=== PATIENT | female | born 1980 | race Caucasian/White ===

== ENCOUNTER 2020-07-06 10:55 | Day surgery (SDC) | payer OTHER ==
[2020-06-28 15:17] LABS: BASOPHILS # (AUTO) 0.1 X10'3 (0-0.2); BASOPHILS % (AUTO) 0.9 % (0-1); EOSINOPHILS # (AUTO) 0.2 X10'3 (0-0.9); EOSINOPHILS % (AUTO) 1.5 % (0-6); LYMPHOCYTES % (AUTO) 23.2 % (21-51); MEAN CORPUSCULAR HEMOGLOBIN 29.9 PG (27.0-31.0); MEAN CORPUSCULAR HGB CONC 33.6 g/dL (33.0-36.5); MEAN CORPUSCULAR VOLUME 89.2 FL (78-98); MEAN PLATELET VOLUME 8.7 FL (7.4-10.4); MONOCYTES # (AUTO) 0.9 X10'3 (0-0.9); MONOCYTES % (AUTO) 6.8 % (2-12); NEUTROPHILS # (AUTO) 8.8 X10'3 (1.8-7.7); NEUTROPHILS % (AUTO) 67.6 % (42-75); PRE OP HEMATOCRIT 40.7 % (35.0-45.0); PRE OP HEMOGLOBIN 13.7 g/dL (12.0-16.0); PRE OP PLATELET COUNT 340 X10'3 (140-440); RED BLOOD COUNT 4.56 X10'6 (4.20-5.60); RED CELL DISTRIBUTION WIDTH 13.3 % (11.5-14.5)
[2020-06-28 15:30] LABS: ALBUMIN 3.5 G/DL (3.4-5.0); ALBUMIN/GLOBULIN RATIO 0.8 (1.1-1.5); ALKALINE PHOSPHATASE 77 IU/L (46-116); BLOOD UREA NITROGEN 17 MG/DL (7-18); BUN/CREATININE RATIO 17.2 (6.6-38.0); CALCIUM 9.1 MG/DL (8.5-10.1); CHLORIDE 107 MMOL/L (99-107); CREATININE 0.99 MG/DL (0.40-0.90); PRE OP ALT 36 U/L (30-65); PRE OP ANION GAP 7 (8-16); PRE OP AST 15 U/L (10-37); PRE OP BILIRUB, TOTAL 0.3 MG/DL (0.0-1.0); PRE OP GLUCOSE 139 MG/DL (70-104); PRE OP POTASSIUM 3.9 MMOL/L (3.4-5.1); PRE OP SODIUM 142 MMOL/L (135-145); TOTAL CARBON DIOXIDE 28.5 MMOL/L (24-32); TOTAL PROTEIN 7.7 G/DL (6.4-8.2); eGFR 62 ML/MIN
[2020-07-06] VITALS (9 sets, daily range): BP systolic 116–157; BP diastolic 72–92
[~2020-07-06] VITALS: Ht 170.2 cm; Wt 141.5 kg
[~2020-07-06 10:55] MED LIST: AMLO1CAP10 PO; CBD; ESCI20TA45 PO; LAMO100T PO; MELATONIN; METF-900 PO; MINO50CA5 PO; NAPR220T67 PO; ceFAZolin inj. 3,000 MG in normal saline 100ml IV soln 100 ML IV ONE; famotidine 20mg tablet PO ONE; ringers solution, lacted 1,000 ML IV SCH; vancomycin 1,500 MG in NS 300ml IV soln IV ONE
[2020-07-06] MEDS ORDERED: BUPIVAcaine/PF 2.5 mg/ml (0.25%) 30ml vial ONE (13:55)
[2020-07-06] MEDS ORDERED: acetaminophen 1000 MG/100ml vial IV ONE (14:09)
[2020-07-06] MEDS ORDERED: sevoflurane 250ml liquid IH ONE (14:09)
[2020-07-06] MEDS ORDERED: midazolam 2 mg/2 ml injection ONE (14:12)
[2020-07-06] MEDS ORDERED: fentaNYL/PF 50MCG/1 ML 2ML syringe ONE ×2 (14:12→14:24)
[2020-07-06] MEDS ORDERED: triamcinolone acetonide 40mg/ml inj ONE (14:50)
[2020-07-06] MEDS ORDERED: LIDOcaine 2% (20mg/ml) 5ml vial ONE (14:59)
[2020-07-06] MEDS ORDERED: propofol inj 20 ML IV ONE (14:59)
[2020-07-06] MEDS ORDERED: ondansetron/PF 4mg/2ml inj ONE (14:59)
[2020-07-06] MEDS ORDERED: glycopyrrolate 0.2mg/ml inj ONE (14:59)
--- NOTE | 2020-07-06 15:22 | NUR ---
Received from OR via [facility] , accompanied by Anesthesiologist RILEY and report given by Anesthesiolgist. PATIENT WITH 20G PIV IN LEFT UE RUNNING LR AT 100. DENIES PAIN. RIGHT KNEE WITH BIAS DRESSING THAT IS CDI. + CAP REFILL AND + DODRSALIS PEDIS PRESENT. 10L MASK ON WITH 100% SATURATIONS. Addendum: 07/06/20 at 1601 by James Chilel RN, RN Amended: Links added.
[2020-07-06] MEDS ORDERED: morphine 2 MG/ML inj. syringe IV PRN (16:00)
[2020-07-06] MEDS ORDERED: meperidine/PF 25mg/ml syringe IV PRN ×2 (16:00)
[2020-07-06] MEDS ORDERED: morphine 4 MG/ML inj SYRINge IV PRN (16:00)
[2020-07-06] MEDS ORDERED: meperidine/PF 25mg/ml syringe ONE (16:04)
--- NOTE | 2020-07-06 17:02 | NUR ---
PATIENT AND FAMILY AND THEY HAVE VERBALIZED UNDERSTANDING, OPPORTUNITY TO ASK QUESTIONS GIVEN AND PATIENT COMFORTABLE WITH DC. IV TAKEN OUT WITHOUT COMPLICATION. PATIENT HAS MET ALL DC CRITERIA FOR DC HOME. I HAVE REVIEWED D/C INSTRUCTIONS WITH OUT VIA WHEELCHAIR WHERE PATIENT WAS TAKEN HOME WITH ALL BELONGINGS. FAMILY GAVE PATIENT TRANSPORT HOME. AMBULATED WITH SPC TO FRONT PASSENGER SEAT OF HER SISTERS CAR. Addendum: 07/06/20 at 1711 by James Chilel RN, RN Amended: Links added.
== END 2020-07-06 17:02 | disposition home or self-care (01) ==
LOC: PAS 10:55
PROVIDERS: ATTEND Orthopaedic Surgery
DX: S83.241A Other tear of medial meniscus, current injury, right knee, initial encounter (principal); S83.271A Complex tear of lateral meniscus, current injury, right knee, initial encounter; M94.261 Chondromalacia, right knee; M17.0 Bilateral primary osteoarthritis of knee; F31.9 Bipolar disorder, unspecified; G47.30 Sleep apnea, unspecified; F41.9 Anxiety disorder, unspecified; I10 Essential (primary) hypertension; E11.59 Type 2 diabetes mellitus with other circulatory complications; E66.01 Morbid (severe) obesity due to excess calories; Z68.43 Body mass index [BMI] 50.0-59.9, adult; Z20.828 Contact with and (suspected) exposure to other viral communicable diseases; Z79.899 Other long term (current) drug therapy; Z87.891 Personal history of nicotine dependence; Z88.8 Allergy status to other drugs, medicaments and biological substances; Z90.49 Acquired absence of other specified parts of digestive tract; Z90.710 Acquired absence of both cervix and uterus; Z98.890 Other specified postprocedural states; X58.XXXA Exposure to other specified factors, initial encounter; Y93.89 Activity, other specified; Y92.89 Other specified places as the place of occurrence of the external cause; Y99.8 Other external cause status; Z82.49 Family history of ischemic heart disease and other diseases of the circulatory system; Z83.3 Family history of diabetes mellitus
CPT/HCPCS: 29873; 29879; 29880; 36415; 80053; 82948; 85025; 87635; 93005; J0131; J0690; J2001; J2175; J2250; J2405; J2704; J3010; J3301; J3370; J3490; J7040; A4215; A4618; A6250; A6449; A7000; J7120